=== PATIENT | female | born 1980 | race African-American/Black ===

== ENCOUNTER 2016-11-12 | Emergency (ER) | payer OTHER | END 2016-11-12 20:20 | disposition left against medical advice (07) | DX: Z53.21 Procedure and treatment not carried out due to patient leaving prior to being seen by health care provider (principal) ==

== ENCOUNTER 2016-12-14 22:05 | Emergency (ER) | payer OTHER ==
[2016-12-14] MEDS ORDERED: LIDOCAINE VISCOUS 2% 15 ML UDC MM STA (22:21)
[2016-12-14] MEDS ORDERED: MAG HYDROX/AL HYDROX/SIMETH 30 ML UDC PO STA (22:21)
[2016-12-14] MEDS ORDERED: ONDANSETRON 4 MG/2 ML VIAL IVP STA (22:21)
[2016-12-14] MEDS ORDERED: DICYCLOMINE 10 MG CAPSULE PO STA (22:21)
[2016-12-14] MEDS ORDERED: MAG HYDROX/AL HYDROX/SIMETH 30 ML UDC ONE (22:26)
[2016-12-14] MEDS ORDERED: ONDANSETRON 4 MG/2 ML VIAL ONE (22:26)
[2016-12-14] MEDS ORDERED: LIDOCAINE VISCOUS 2% 15 ML UDC MM ONE (22:26)
[2016-12-14] MEDS ORDERED: DICYCLOMINE 10 MG CAPSULE PO ONE (22:26)
[2016-12-15] MEDS ORDERED: oxyCODONE/ACET 5/325 Prepack 4 PO STA (00:08)
[2016-12-15] MEDS ORDERED: oxyCODONE/ACET 5/325 Prepack 4 PO ONE (00:10)
== END 2016-12-15 00:25 | disposition home or self-care (01) ==
DX: R10.13 Epigastric pain (principal); R11.0 Nausea; R10.817 Generalized abdominal tenderness; Z90.710 Acquired absence of both cervix and uterus
CPT/HCPCS: 36415; 80053; 81003; 81025; 83605; 83690; 85025; 96374; 99283; A9270

== ENCOUNTER 2016-12-16 13:47 | Emergency (ER) | payer OTHER ==
[2016-12-16] MEDS ORDERED: KETOROLAC 60 MG/2 ML VIAL IVP STA (14:59)
[2016-12-16] MEDS ORDERED: KETOROLAC 60 MG/2 ML VIAL ONE (15:13)
[2016-12-16] MEDS ORDERED: IOPAMIDOL-300 100 ML VIAL IVP ONE (16:15)
== END 2016-12-16 17:26 | disposition home or self-care (01) ==
DX: N76.0 Acute vaginitis (principal); B96.89 Other specified bacterial agents as the cause of diseases classified elsewhere; B37.3 Candidiasis of vulva and vagina; Z90.710 Acquired absence of both cervix and uterus
CPT/HCPCS: 36415; 74177; 80053; 81003; 83690; 85025; 87210; 87220; 87491; 87591; 96374; 99284; Q9967

== ENCOUNTER 2017-01-01 14:53 | Emergency (ER) | payer OTHER ==
[2017-01-01] MEDS ORDERED: MAG HYDROX/AL HYDROX/SIMETH 30 ML UDC PO STA (15:30)
[2017-01-01] MEDS ORDERED: PANTOPRAZOLE 40 MG TABLET PO STA (15:30)
== END 2017-01-01 16:45 | disposition home or self-care (01) ==
DX: R10.13 Epigastric pain (principal)